=== PATIENT | male | born 1945 | race Caucasian/White ===

== ENCOUNTER 2023-02-15 13:00 | Outpatient (RCR) | payer MEDICARE, SELFPAY | END 2023-04-25 07:51 | disposition home or self-care (01) | PROVIDERS: Visit Provider Family Medicine | DX: I63.9 Cerebral infarction, unspecified (principal); Z51.89 Encounter for other specified aftercare | CPT/HCPCS: 97110; 97112; 97116; 97140; 97164; 97165; 97530; 97535; X5282 ==

== ENCOUNTER 2023-02-27 06:58 | Day surgery (SDC) | payer MEDICARE, SELFPAY ==
[2023-02-27] VITALS (48 sets, daily range): BP systolic 78–145; BP diastolic 43–90; PULSE 64–96; RESP 16–18; TEMP 35.9–37; O2SAT 91–98; BMI 38.5
[2023-02-27] MEDS: LACTATED RINGERS 1000 ML 1,000 ML 100 ML IV ×2 (07:00→11:19)
[2023-02-27] MEDS: ACETAMINOPHEN 500 MG TABLET 1000 MG PO ×3 (07:15→20:38)
[2023-02-27] MEDS: OXYCODONE (CR) 10 MG TAB.ER.12H PO (07:15)
[2023-02-27] MEDS: fentaNYL 100 MCG/2 ML inj IVP (08:50)
[2023-02-27] MEDS: MIDAZOLAM HCL 1 MG/ML inj IVP (08:50)
--- NOTE | 2023-02-27 08:58 | SUR.PREOP ---
TIME?OUT:?0848 PT/RN/MDA?VERIFICATION?OF?SURGICAL?SITE,?PROCEDURE,?AND?CONSENT OBTAINED?PRIOR?TO?INVASIVE?PROCEDURE.
--- NOTE | 2023-02-27 09:00 | W.ANESCHARGE ---
Anesthesia Charges Start Date/Time Anesthesia Start Date: 02/27/23 Anesthesia Start Time: 09:18 Stop Date/Time Anesthesia Stop Date: 02/27/23 Anesthesia Stop Time: 12:00 Summary Extremes of Age - Over 70 or under 1: MDA
--- NOTE | 2023-02-27 09:01 | W.PM.NB ---
Nerve Block Nerve Block Time Seen by Provider: 08:55 Date Seen: 02/27/23 Type of block requested by surgeon for post-operative analgesia: supraclavicular Side: left Time out performed: Yes Verification of patient name: Yes Verification of date of : Yes Site marking: site marked Name of person performing procedure: Cristóbal Continuous monitoring Was continuous monitoring of O2 sat, B/P, hospital monitor, recorded every 15 minutes?: Yes Procedure Checklist: sterile prep, needles and gloves Ultrasound guided. Images saved: Yes Medications given in 5ml increments after negative aspiration: Ropivicaine %: 0.5 mL: 20 Needle gauge: 22 Decadron (mg): 10 Precedex (mcg): 25 Patient tolerated procedure well: Yes Block Charges Block Charge (with Pro Fee): Brachial Plexus Use of Ultrasound Machine for Block: Yes- US Guidance/pain block
[2023-02-27] MEDS: CEFAZOLIN 2 GM INJ IVP (09:21)
[2023-02-27] MEDS: TRANEXAMIC ACID 100 MG/ML INJ 1000 MG IV (09:22)
--- NOTE | 2023-02-27 09:54 | SUR.OPER ---
PATIENT QUESTIONS ANSWERED SATISFACTORILY PREOPERATIVELY. PATIENT BROUGHT TO OR #3 PER CART FOLLOWING THE BLOCK. Patient positioned supine on OR #3 bed for the intubation.? Perioperative team wrapped the right arm in a neutral position on the pt. abdomen with the drawsheet. Left arm elevated on an IV pole in a padded strap. Final approval of positioning by surgeon.
--- NOTE | 2023-02-27 11:19 | CRLHL7_ITS ---
For Patients: As a result of the Cures Act, medical imaging exams and procedure reports are released immediately into your electronic medical record. You may view this report before your referring provider. If you have questions, please contact your health care provider. Indication: Left shoulder arthroplasty Technique: Left shoulder 2 view Findings: Hardware from a left shoulder arthroplasty is in satisfactory position. Bone alignment is normal. No sign of acute fracture. There are postoperative changes in the soft tissues. Dictated by Jose Alberto Robison MD @ 02/28/2023 3:49:57 PM (Electronically Signed)
--- NOTE | 2023-02-27 11:26 | P.ORPRC_ITS ---
Procedure Note Date of procedure: 02/27/23 Procedure: PREOPERATIVE DIAGNOSIS: Left shoulder rotator cuff tear arthropathy POSTOPERATIVE DIAGNOSIS: Left shoulder rotator cuff tear arthropathy NAME OF OPERATION: Left upper extremity reverse shoulder arthroplasty SURGEON: Jamel Shah MD [facility] AUTHOR: JESUS ALBERTO Rogers ANESTHESIA: General endotracheal ESTIMATED BLOOD LOSS: 500 mL COMPLICATIONS: None SPECIMENS: None DRAINS: None PREOPERATIVE ANTIBIOTICS: Ancef 2 grams IMPLANTS: 1. Tornier 29 mm x 35 mm baseplate 2. 36mm standard glenosphere 3. 7B humeral stem 4. High eccentric +0 humeral tray 5. 36mm +6 polyethylene INDICATIONS: The patient is a 77-year-old with a longstanding history of severe, unrelenting left shoulder pain secondary to rotator cuff tear arthropathy. Despite appropriate nonoperative management, including activity modification, anti-inflammatories, [id number] pain medication, physical therapy, and injections they continue to have pain and disability. Operative intervention was offered. The risks, benefits and expected outcomes were discussed in detail. These included but were not limited to: Infection, bleeding, injury to blood vessel or nerve, venous thromboembolism. All questions were answered to their satisfac tion. Use of an transition assistant was necessary throughout the case for patient positioning and safety, soft tissue retraction, and closure. PROCEDURE: General anesthesia was administered. The patient was placed in the lazy beach chair position on the operating room table. The left upper extremity was prepped and draped in the usual sterile fashion. A standard deltopectoral incision was made. Subcutaneous dissection was taken with electrocautery to the deltopectoral interval. There was a large superficial varicosity at the distal apex of the wound. This was tied off with an 0 Vicryl suture and divided. The cephalic vein was not encountered. We bluntly entered the deltopectoral interval. We freed up the deltoid. The upper 1/3 of the insertion of the pectoralis was divided with cautery. The static retractor was placed. The clavipectoral fascia and CA ligament were divided. The circumflex vessels were controlled with electrocautery. The biceps was not encountered. There were a few fibers of subscap remaining attached to the lesser tuberosity. Otherwise, the rest of the rotator cuff; including the teres minor, were completely torn and retracted off of the humeral head. A fiberWire suture was placed in the subscapularis. The subscap was subperiosteally elevated off of the lesser tuberosity. The humeral head was delivered into the wound. The intramedullary humeral cutting guide was placed. We made the cut at the anatomic neck, in 30? of retroversion. Humeral sounds were used to assess the diameter of the canal. The broach was placed and had good rotational stability. The calcar reamer was used and the protective base plate cover was placed. Attention was then turned to the glenoid. Hohmann retractors were placed posteriorly. The labrum was sharply debrided. The origin of the inferior glenohumeral ligaments were subperiosteally released off of the glenoid. The drill guide was placed. The guide pin was placed in 0? of cephalic tilt. The reamer was used to bleeding bone. The central drill was used x2. The tap was used. The standard base plate was placed. This had excellent purchase. A superior and inferior locking screw were placed. The glenosphere was placed, the set screw was tightened. Attention then returned to the humerus. We placed a high eccentric standard base plate and standard poly. We reduced the shoulder and took it through a range of motion. It was found to be stable with appropriate soft tissue tension. Trial humeral components were removed. The biceps was tenodesed in the bicipital groove with drill holes and our previously placed FiberWire suture. We placed #2 FiberWire sutures in the lesser tuberosity for subsequent subscap repair. We assembled the humeral component on the back table. We placed it in the center of our subscapularis repair sutures and tapped it down to our humeral cut. This had excellent purchase. The shoulder was reduced and again was found to be stable with appropriate soft tissue tension. We did a 3 min dilute Betadine solution soak. We irrigated the wound with 3 L of normal saline via pulse lavage. We repaired the subscapularis to the lesser tuberosity with our previously placed FiberWire sutures. The deltopectoral interval was loosely reapproximated with an 0 Vicryl in an interrupted [id number] fashion. Subcutaneous tissues were closed with the 2-0 Vicryl and a running 3-0 Monocryl suture. The skin was sealed with glue. A dry dressing and sling were applied. Sponge and needle counts were correct x2. The patient tolerated the procedure well, there were no apparent complications. They were awakened and extubated in the operating room, taken to the postanesthesia care unit in satisfactory condition. PLAN: The patient will be mobilized with physical therapy. The sling will be used for 6 weeks postoperatively. Active range of motion in forward flexion and abduction as tolerates. No external rotation greater than 0? for 6 weeks postoperatively. They will be discharged to home once medically appropriate.
--- NOTE | 2023-02-27 12:02 | W.ANESCHARGE ---
Anesthesia Charges Start Date/Time Anesthesia Start Date: 02/27/23 Anesthesia Start Time: 09:18 Stop Date/Time Anesthesia Stop Date: 02/27/23 Anesthesia Stop Time: 12:00
--- NOTE | 2023-02-27 13:07 | PC.NURSE ---
Md notified that patients blood pressures are low. Denies low BP symptoms. Verbal order for LR at 500cc/hr X1 hour.
[2023-02-27] MEDS: LACTATED RINGERS 500 ML 500 ML IV ×2 (13:08→14:15)
[2023-02-27] MEDS: LACTATED RINGERS 1000 ML 1,000 ML 75 ML IV ×2 (13:58→23:39)
--- NOTE | 2023-02-27 14:04 | PC.SOCIAL ---
Discharge planning: Met with pt to discuss discharge planning. Pt states he will return home with his son after discharge and continue outpatient physical therapy. Pt feels good about this discharge plan. No other director social follow-up needed at this time.
--- NOTE | 2023-02-27 14:15 | PC.NURSE ---
MD notified that BP continues to be low. Patient does not complain of dizziness or light headedness. LR bolus ordered and started.
--- NOTE | 2023-02-27 14:38 | PM.IMCN1 ---
Date of Consult Patient: [facility] Patient Consult date: 02/27/23 Requesting Physician: Orthopedics Primary Care Provider: Lauren Hernandez, Consult Narrative Reason for consult: post op hypotension Narrative: Patricio Lopez is a 77 year old male with a complicated medical history who underwent an elective left reverse shoulder arthroplasty today. Postoperatively, he has been hypotensive with sitting up even a little. He got 1.5L IVF in the OR and two 500mL boluses since being on the floor. He feels fine. He denies pain, states the block is still working, denies dizziness or lightheadedness, chest pain, shortness of breath, or nausea. His nurse notes that he seems a little confused as he says some funny things sometimes. I also noted he seemed mildly confused, as he asked if I was ringing a perez when the IV pump beeped. He has not had any UO yet since surgery. Review of Systems Status of ROS: Reports: 10 or more systems reviewed and unremarkable except as noted in History and below [facility] Medical History (Updated 02/27/23 @ 17:19 by Jeanine More MD) Mild cognitive impairment ?G31.84 - Mild cognitive impairment of uncertain or unknown etiology (ICD-10) CKD stage 3 due to type 2 diabetes mellitus ?E11.22 - Type 2 diabetes mellitus with diabetic chronic kidney disease (ICD-10) ?N18.30 - Chronic kidney disease, stage 3 unspecified (ICD-10) Type 2 diabetes mellitus ?E11.9 - Type 2 diabetes mellitus without complications (ICD-10) Morbid obesity ?E66.01 - Morbid (severe) obesity due to excess calories (ICD-10) Colon polyps ?K63.5 - Polyp of colon (ICD-10) Ischemic cardiomyopathy ?I25.5 - Ischemic cardiomyopathy (ICD-10) Implantable cardioverter-defibrillator (ICD) in situ ?Z95.810 - Presence of automatic (implantable) cardiac defibrillator (ICD-10) NSVT (nonsustained ventricular tachycardia) ?I47.29 - Other ventricular tachycardia (ICD-10) Chronic congestive heart failure ?I50.9 - Heart failure, unspecified (ICD-10) LEWIS (obstructive sleep apnea) ?G47.33 - Obstructive sleep apnea (adult) (pediatric) (ICD-10) Hyperopia of both eyes with astigmatism and presbyopia ?H52.03 - Hypermetropia, bilateral (ICD-10) ?H52.203 - Unspecified astigmatism, bilateral (ICD-10) ?H52.4 - Presbyopia (ICD-10) Restrictive lung disease ?J98.4 - Other disorders of lung (ICD-10) HLD (hyperlipidemia) ?E78.5 - Hyperlipidemia, unspecified (ICD-10) Myocardial infarction ?I21.9 - Acute myocardial infarction, unspecified (ICD-10) TIA (transient ischemic attack) ?G45.9 - Transient cerebral ischemic attack, unspecified (ICD-10) Coronary artery disease ?I25.10 - Atherosclerotic heart disease of ruby coronary artery without angina pectoris (ICD-10) Hypertension ?I10 - Essential (primary) hypertension (ICD-10) Stroke ?I63.9 - Cerebral infarction, unspecified (ICD-10) Closed fracture of proximal end of right humerus ?S42.201A - Unspecified fracture of upper end of right humerus, initial encounter for closed fracture (ICD-10) Surgical History (Updated 02/27/23 @ 17:19 by Jeanine More MD) S/p reverse total shoulder arthroplasty (02/27/23) ?Z96.619 - Presence of unspecified artificial shoulder joint (ICD-10) H/O right wrist surgery (~1963) ?Z98.890 - Other specified postprocedural states (ICD-10) History of placement of internal cardiac defibrillator (~2004) ?Z95.810 - Presence of automatic (implantable) cardiac defibrillator (ICD-10) S/P CABG x 3 (~02/13/19) ?Z95.1 - Presence of aortocoronary bypass graft (ICD-10) H/O angioplasty ?Z98.62 - Peripheral vascular angioplasty status (ICD-10) Hx of colonoscopy ?Z98.890 - Other specified postprocedural states (ICD-10) History of tonsillectomy (~1951) ?Z90.89 - Acquired absence of other organs (ICD-10) H/O heart surgery ?Z98.890 - Other specified postprocedural states (ICD-10) History of carpal tunnel surgery of left wrist (07/08/08) ?Z98.890 - Other specified postprocedural states (ICD-10) Status post right hip replacement (12/23/19) ?Z96.641 - Presence of right artificial hip joint (ICD-10) Family History (Updated 02/27/23 @ 15:28 by Jeanine More MD) Father Dementia Maternal Grandmother Diabetes Brother Cardiomyopathy Social History (Updated 02/27/23 @ 15:29 by Jeanine More MD) Narrative: Lives in his own house. . Son, Casey, and Casey's 14 year old daughter live with him. He denies tobacco use. 1-2 alcoholic drinks per week. Meds Home Medications and Allergies Home Medications Medication Instructions Recorded Confirmed Type cyanocobalamin (vitamin B-12) 1,000 mcg PO DAILY 12/08/22 12/08/22 History 1,000 mcg tablet ezetimibe 10 mg tablet 10 mg PO DAILY 12/08/22 02/27/23 History ferrous sulfate 325 mg (65 mg 325 mg PO 12/08/22 12/08/22 History iron) tablet furosemide 20 mg tablet 20 mg PO QAM 12/08/22 02/27/23 History glipizide 5 mg tablet 2.5 mg PO BIDWM 12/08/22 02/27/23 History lisinopril 10 mg tablet 5 mg PO DAILY 12/08/22 02/27/23 History metoprolol succinate 100 mg 100 mg PO DAILY 12/08/22 02/27/23 History tablet,extended release 24 hr rosuvastatin 40 mg tablet 20 mg PO .UD 12/08/22 02/27/23 History rivaroxaban 20 mg tablet (Xarelto) 20 mg PO DAILY 12/13/22 02/27/23 History Allergies Allergy/AdvReac Type Severity Reaction Status Date / Time aspirin Allergy Verified 02/27/23 07:50 atorvastatin Allergy Verified 02/27/23 07:50 Exam Narrative: Exam Narrative: General: No acute distress. Awake alert oriented x3 and to situation. HEENT: Normocephalic atraumatic, pupils equally round and reactive to light and accommodation. Oropharynx clear. Mucous membranes are slightly dry. No cervical lymphadenopathy, thyromegaly or carotid bruits. No JVD. Cardiovascular: Regular rate and rhythm. No murmurs, gallops, or rubs. Chest: No increased work of breathing. Clear to auscultation bilaterally. No crackles or wheezes. Defibrillator in a well-healed pocket in the left upper anterior chest left shoulder bandages are clean, dry, and intact. Abdomen: Bowel sounds present. Soft, nondistended, nontender. No hepatosplenomegaly or masses. Extremities: No edema, no cyanosis or clubbing. Skin: No jaundice, no pallor, no rashes. Const: Vital Signs, click to edit/add: Vital Signs - 24 hr 02/27/23 07:30 02/27/23 08:50 02/27/23 08:55 Temperature 98.0 F Pulse Rate 71 73 64 Respiratory Rate 16 16 16 Blood Pressure 133/72 145/90 H 120/69 Pulse Oximetry Oxygen Delivery Me thod Nasal Cannula Nasal Cannula Oxygen Flow Rate 2 2 02/27/23 09:00 02/27/23 09:07 02/27/23 11:55 Temperature 97.4 F L Pulse Rate 66 66 80 Respiratory Rate 16 16 16 Blood Pressure 114/67 118/64 130/89 Pulse Oximetry 96 Oxygen Delivery Me thod Nasal Cannula Nasal Cannula Room Air Oxygen Flow Rate 2 2 02/27/23 12:00 02/27/23 12:05 02/27/23 12:10 Temperature 97.2 F L Pulse Rate 74 71 72 Respiratory Rate 18 18 18 Blood Pressure 114/64 111/56 L 114/61 Pulse Oximetry 95 94 94 Oxygen Delivery Me thod Room Air Room Air Room Air Oxygen Flow Rate 02/27/23 12:15 02/27/23 12:20 02/27/23 12:25 Temperature 97.2 F L Pulse Rate 74 70 67 Respiratory Rate 18 16 18 Blood Pressure 115/63 114/61 110/69 Pulse Oximetry 94 93 93 Oxygen Delivery Me thod Room Air Room Air Room Air Oxygen Flow Rate Assessment and Plan Assessment and plan (1) S/p reverse total shoulder arthroplasty: Problem comment: - 02/27/23 Dr. Shah - Pain well controlled - Routine post op cares - PT/OT. Anticipate home tomorrow with son. Status: Acute (2) Postoperative hypotension: Problem comment: - orthostatic - Improving now after 2.5 L IVF total (during and postop) - Monitor UO and orthostatic VS - hold home antihypertensives Status: Acute (3) Hypertension: Problem comment: as above Status: Chronic (4) Mild cognitive impairment: Problem comment: - Monitor for delirium. Reorient frequently. Status: Chronic (5) NSVT (nonsustained ventricular tachycardia): Problem comment: has defibrillator in situ Status: Chronic (6) Chronic congestive heart failure: Problem comment: - Give IVF carefully and monitor for hypoxia/pulmonary edema Status: Chronic (7) Restrictive lung disease: Status: Chronic (8) LEWIS (obstructive sleep apnea): Problem comment: - 09/30/2017 AHI/RDI:14 - Patient has home CPAP with him. Status: Chronic (9) Type 2 diabetes mellitus: Problem comment: - Continue home diabetic meds. - Use ISS ACHS while in the hospital Status: Acute (10) CKD stage 3 due to type 2 diabetes mellitus: Status: Chronic
--- NOTE | 2023-02-27 15:04 | PC.NURSE ---
End of shift note: patient returned from OR at 1235. BP has been low since coming back. Worse when head of bed is elevated. Better when flat. MD aware and X2 bolus's given. LR at 75/hr. Has not voided yet or felt the urge to void. Blood sugar on arrival to unit was 181. Has drank apple juice, had crackers and water. Denies nausea/vomiting, denies dizziness. Is able to feel and move fingers on left side. Fingers are warm and capillary refill is sufficient. Incision is covered with dressing and no drainage noted. Ice pack intact. Due to the low BP, patient has not been up yet. Patient asked where he was and appeared to be confused. Son stated that he is very sensitive to narcotics and anesthesia. On RA. Bowel sounds hypoactive-pt unaware when his last BM was. Lives with son and son plans to take him home tomorrow.
[2023-02-27 16:01] LABS: Hemoglobin* 12.7 gm/dL (13.5-17.5)
[2023-02-27] MEDS: CEFAZOLIN 2 GM in 0.9 % SODIUM CHLORIDE Mini-bag 100 ML IVPB ×2 (16:30→23:38)
[2023-02-27] MEDS: glipiZIDE 5 MG TABLET 2.5 MG PO (18:13)
[2023-02-27] MEDS: INSULIN ASPART 100 UNIT/ML SUBCUT ×2 (18:13→20:38)
--- NOTE | 2023-02-27 19:27 | PC.NURSE ---
End of shift. 3-7 pt has been pleasant. he is alert x4 but he has some forgetfulness. pt said he has had some cognitive problems. LR at 75/hr. he is drinking and he did void in the toilet. bps done and are improving. he was able to eat supper. he Is able to feel and move fingers on left side. Fingers are warm with good cms. dressing is C/D/I. active ice is on/. he is a fall risk and alarms are on. he is up with 1-2 assist and gb and IV pole. he has his mohamud socks on. IV is patent. arm in in a sling.
[2023-02-27] MEDS: SENNOSIDES 1 TAB TABLET 2 TAB PO (20:36)
[2023-02-27] MEDS: ROSUVASTATIN CALCIUM 10 MG TABLET 20 MG PO (20:37)
[2023-02-28] MEDS: ACETAMINOPHEN 500 MG TABLET 1000 MG PO ×2 (02:29→08:17)
[2023-02-28 02:43] VITALS: BP 138/72; PULSE 98; RESP 18; TEMP 37; O2SAT 96
--- NOTE | 2023-02-28 05:11 | PC.NURSE ---
Pt alert and oriented to self and at times place. When asked where he is he stated I'm in [facility] in the assisted part and when asked what year he stated 2006. Pt reports 2/10 pain in left shoulder, pain managed with scheduled Tylenol. Pt's left shoulder dressing is CDI. Pt is up SBA to bathroom. Bed alarm on. Pt slept throughout most of night occasionally setting of bed alarm to go to the bathroom.
[2023-02-28 06:35] LABS: Hematocrit 35.6 % (37.0-53.0); Hemoglobin* 11.8 gm/dL (13.5-17.5); Mean Corpuscular HGB Conc 33 gm/dL (32-36); Mean Corpuscular Hemoglobin 32 pg (26-34); Mean Corpuscular Volume 95 fL (80-100); Platelet Count* 175 K/uL (140-440); Red Blood Count 3.74 m/uL (4.30-5.90); White Blood Count* 14.01 K/uL (4.50-11.00)
[2023-02-28 06:57] LABS: Potassium* 4.8 mmol/L (3.6-5.1); Sodium* 137 mmol/L (135-149)
[2023-02-28 07:00] LABS: Creatinine* 0.6 mg/dL (0.5-1.5); Est. Creatinine Clearance* 59.85; Estimated Glomerular Filt Rate 99 ml/min
[2023-02-28 07:01] LABS: Blood Urea Nitrogen* 18 mg/dL (7-30)
[2023-02-28 07:06] LABS: Slide Review Reflex No
[2023-02-28 08:05] VITALS: BP 127/68; PULSE 76; PULSE 92; RESP 16; TEMP 36.5; O2SAT 95
[2023-02-28] MEDS: glipiZIDE 5 MG TABLET 2.5 MG PO (08:17)
[2023-02-28] MEDS: INSULIN ASPART 100 UNIT/ML SUBCUT (08:18)
--- NOTE | 2023-02-28 08:46 | P.ORPN_ITS ---
Subjective Subjective Time Seen by Provider: 07:13 Date Seen: 02/28/23 Principal diagnosis: Status post left reverse total shoulder arthroplasty Interval history: Patricio is comfortable this morning. He is planning to discharge with his son to day. He had postop hypertension and confusion. He states his pain is 2/10. Ortho Exam Narrative Exam Narrative: Alert and conversive. Patient is in no acute distress. Converses without labored breathing. Hearing is grossly intact. Ambulates with a normal gait. Examination of the left shoulder shows mild edema. Dressing is intact. No erythema or warmth or sign of infection. CMS intact left upper extremity. He is able to range the elbow, wrist, fingers. Block has begun to wear off. He however appears comfortable. Ice pack in place. No sign of infection or DVT. Const Vital Signs, click to edit/add: Vital Signs - 24 hr 02/27/23 08:50 02/27/23 08:55 02/27/23 09:00 Temperature Pulse Rate 73 64 66 Pulse Rate [Left Pulse Oximeter] Pulse Rate [Left Radial] Pulse Rate [orthostatic lying Right Radial] Pulse Rate [orthostatic sitting Right Radial] Pulse Rate [orthostatic standing Right Radial] Respiratory Rate 16 16 16 Blood Pressure 145/90 H 120/69 114/67 Blood Pressure [Right Arm] Blood Pressure [orthostatic lying Right Arm] Blood Pressure [orthostatic sitting Right Arm] Blood Pressure [orthostatic standing Right Arm] Pulse Oximetry Oxygen Delivery Method Nasal Cannula Nasal Cannula Nasal Cannula Oxygen Flow Rate 2 2 2 02/27/23 09:07 02/27/23 11:55 02/27/23 12:00 Temperature 97.4 F L Pulse Rate 66 80 74 Pulse Rate [Left Pulse Oximeter] Pulse Rate [Left Radial] Pulse Rate [orthostatic lying Right Radial] Pulse Rate [orthostatic sitting Right Radial] Pulse Rate [orthostatic standing Right Radial] Respiratory Rate 16 16 18 Blood Pressure 118/64 130/89 114/64 Blood Pressure [Right Arm] Blood Pressure [orthostatic lying Right Arm] Blood Pressure [orthostatic sitting Right Arm] Blood Pressure [orthostatic standing Right Arm] Pulse Oximetry 96 95 Oxygen Delivery Method Nasal Cannula Room Air Room Air Oxygen Flow Rate 2 02/27/23 12:05 02/27/23 12:10 02/27/23 12:15 Temperature 97.2 F L Pulse Rate 71 72 74 Pulse Rate [Left Pulse Oximeter] Pulse Rate [Left Radial] Pulse Rate [orthostatic lying Right Radial] Pulse Rate [orthostatic sitting Right Radial] Pulse Rate [orthostatic standing Right Radial] Respiratory Rate 18 18 18 Blood Pressure 111/56 L 114/61 115/63 Blood Pressure [Right Arm] Blood Pressure [orthostatic lying Right Arm] Blood Pressure [orthostatic sitting Right Arm] Blood Pressure [orthostatic standing Right Arm] Pulse Oximetry 94 94 94 Oxygen Delivery Method Room Air Room Air Room Air Oxygen Flow Rate 02/27/23 12:20 02/27/23 12:25 02/27/23 12:33 Temperature 97.2 F L Pulse Rate 70 67 72 Pulse Rate [Left Pulse Oximeter] Pulse Rate [Left Radial] Pulse Rate [orthostatic lying Right Radial] Pulse Rate [orthostatic sitting Right Radial] Pulse Rate [orthostatic standing Right Radial] Respiratory Rate 16 18 Blood Pressure 114/61 110/69 Blood Pressure [Right Arm] Blood Pressure [orthostatic lying Right Arm] Blood Pressure [orthostatic sitting Right Arm] Blood Pressure [orthostatic standing Right Arm] Pulse Oximetry 93 93 95 Oxygen Delivery Method Room Air Room Air Oxygen Flow Rate 02/27/23 12:35 02/27/23 12:39 02/27/23 12:41 Temperature 96.6 F L Pulse Rate 65 70 69 Pulse Rate [Left Pulse Oximeter] Pulse Rate [Left Radial] Pulse Rate [orthostatic lying Right Radial] Pulse Rate [orthostatic sitting Right Radial] Pulse Rate [orthostatic standing Right Radial] Respiratory Rate 16 16 16 Blood Pressure 87/76 L 90/43 L 90/52 L Blood Pressure [Right Arm] Blood Pressure [orthostatic lying Right Arm] Blood Pressure [orthostatic sitting Right Arm] Blood Pressure [orthostatic standing Right Arm] Pulse Oximetry 97 98 98 Oxygen Delivery Method Oxygen Flow Rate 02/27/23 12:47 02/27/23 12:49 02/27/23 13:00 Temperature Pulse Rate 69 71 Pulse Rate [Left Pulse Oximeter] Pulse Rate [Left Radial] Pulse Rate [orthostatic lying Right Radial] Pulse Rate [orthostatic sitting Right Radial] Pulse Rate [orthostatic standing Right Radial] Respiratory Rate Blood Pressure 100/49 L Blood Pressure [Right Arm] Blood Pressure [orthostatic lying Right Arm] Blood Pressure [orthostatic sitting Right Arm] Blood Pressure [orthostatic standing Right Arm] Pulse Oximetry 94 95 Oxygen Delivery Method Oxygen Flow Rate 02/27/23 13:00 02/27/23 13:02 02/27/23 13:13 Temperature 96.8 F L 97.1 F L Pulse Rate 67 73 Pulse Rate [Left Pulse Oximeter] Pulse Rate [Left Radial] Pulse Rate [orthostatic lying Right Radial] Pulse Rate [orthostatic sitting Right Radial] Pulse Rate [orthostatic standing Right Radial] Respiratory Rate 16 16 Blood Pressure 78/54 L 85/61 L Blood Pressure [Right Arm] Blood Pressure [orthostatic lying Right Arm] Blood Pressure [orthostatic sitting Right Arm] Blood Pressure [orthostatic standing Right Arm] Pulse Oximetry 94 97 Oxygen Delivery Method Room Air Oxygen Flow Rate 02/27/23 13:15 02/27/23 13:17 02/27/23 13:30 Temperature Pulse Rate 74 75 68 Pulse Rate [Left Pulse Oximeter] Pulse Rate [Left Radial] Pulse Rate [orthostatic lying Right Radial] Pulse Rate [orthostatic sitting Right Radial] Pulse Rate [orthostatic standing Right Radial] Respiratory Rate Blood Pressure 88/66 L Blood Pressure [Right Arm] Blood Pressure [orthostatic lying Right Arm] Blood Pressure [orthostatic sitting Right Arm] Blood Pressure [orthostatic standing Right Arm] Pulse Oximetry 96 95 96 Oxygen Delivery Method Oxygen Flow Rate 02/27/23 13:33 02/27/23 13:45 02/27/23 13:47 Temperature Pulse Rate 72 77 71 Pulse Rate [Left Pulse Oximeter] Pulse Rate [Left Radial] Pulse Rate [orthostatic lying Right Radial] Pulse Rate [orthostatic sitting Right Radial] Pulse Rate [orthostatic standing Right Radial] Respiratory Rate Blood Pressure 94/49 L 98/53 L Blood Pressure [Right Arm] Blood Pressure [orthostatic lying Right Arm] Blood Pressure [orthostatic sitting Right Arm] Blood Pressure [orthostatic standing Right Arm] Pulse Oximetry 96 95 96 Oxygen Delivery Method Oxygen Flow Rate 02/27/23 13:59 02/27/23 14:00 02/27/23 14:01 Temperature Pulse Rate 76 73 74 Pulse Rate [Left Pulse Oximeter] Pulse Rate [Left Radial] Pulse Rate [orthostatic lying Right Radial] Pulse Rate [orthostatic sitting Right Radial] Pulse Rate [orthostatic standing Right Radial] Respiratory Rate Blood Pressure 81/50 L 95/72 Blood Pressure [Right Arm] Blood Pressure [orthostatic lying Right Arm] Blood Pressure [orthostatic sitting Right Arm] Blood Pressure [orthostatic standing Right Arm] Pulse Oximetry 97 96 98 Oxygen Delivery Method Oxygen Flow Rate 02/27/23 14:15 02/27/23 14:30 02/27/23 14:32 Temperature 97.1 F L Pulse Rate 72 71 70 Pulse Rate [Left Pulse Oximeter] Pulse Rate [Left Radial] Pulse Rate [orthostatic lying Right Radial] Pulse Rate [orthostatic sitting Right Radial] Pulse Rate [orthostatic standing Right Radial] Respiratory Rate Blood Pressure 92/57 L Blood Pressure [Right Arm] Blood Pressure [orthostatic lying Right Arm] Blood Pressure [orthostatic sitting Right Arm] Blood Pressure [orthostatic standing Right Arm] Pulse Oximetry 95 96 95 Oxygen Delivery Method Oxygen Flow Rate 02/27/23 14:45 02/27/23 15:00 02/27/23 15:02 Temperature 97.1 F L Pulse Rate 70 77 78 Pulse Rate [Left Pulse Oximeter] Pulse Rate [Left Radial] Pulse Rate [orthostatic lying Right Radial] Pulse Rate [orthostatic sitting Right Radial] Pulse Rate [orthostatic standing Right Radial] Respiratory Rate 16 Blood Pressure 98/60 Blood Pressure [Right Arm] Blood Pressure [orthostatic lying Right Arm] Blood Pressure [orthostatic sitting Right Arm] Blood Pressure [orthostatic standing Right Arm] Pulse Oximetry 95 95 97 Oxygen Delivery Method Oxygen Flow Rate 02/27/23 15:15 02/27/23 15:35 02/27/23 15:37 Temperature 97.1 F L Pulse Rate 82 Pulse Rate [Left Pulse Oximeter] 74 74 Pulse Rate [Left Radial] Pulse Rate [orthostatic lying Right Radial] Pulse Rate [orthostatic sitting Right Radial] Pulse Rate [orthostatic standing Right Radial] Respiratory Rate 16 16 Blood Pressure Blood Pressure [Right Arm] 105/46 L Blood Pressure [orthostatic lying Right Arm] Blood Pressure [orthostatic sitting Right Arm] Blood Pressure [orthostatic standing Right Arm] Pulse Oximetry 91 96 Oxygen Delivery Method Room Air Oxygen Flow Rate 02/27/23 16:03 02/27/23 16:33 02/27/23 16:35 Temperature Pulse Rate Pulse Rate [Left Pulse Oximeter] 71 74 84 Pulse Rate [Left Radial] Pulse Rate [orthostatic lying Right Radial] Pulse Rate [orthostatic sitting Right Radial] Pulse Rate [orthostatic standing Right Radial] Respiratory Rate 16 16 16 Blood Pressure Blood Pressure [Right Arm] 108/58 L 104/59 L 144/69 H Blood Pressure [orthostatic lying Right Arm] Blood Pressure [orthostatic sitting Right Arm] Blood Pressure [orthostatic standing Right Arm] Pulse Oximetry 94 95 95 Oxygen Delivery Method Room Air Room Air Room Air CPAP Oxygen Flow Rate 02/27/23 17:03 02/27/23 17:33 02/27/23 18:01 Temperature Pulse Rate Pulse Rate [Left Pulse Oximeter] 94 74 Pulse Rate [Left Radial] Pulse Rate [orthostatic lying Right Radial] 77 Pulse Rate [orthostatic sitting Right Radial] 89 Pulse Rate [orthostatic standing Right Radial] 96 Respiratory Rate 16 16 Blood Pressure Blood Pressure [Right Arm] 112/61 110/77 Blood Pressure [orthostatic lying Right Arm] 110/70 Blood Pressure [orthostatic sitting Right Arm] 120/71 Blood Pressure [orthostatic standing Right Arm] 106/71 Pulse Oximetry 95 95 Oxygen Delivery Method Room Air CPAP Room Air CPAP Oxygen Flow Rate 02/27/23 18:30 02/27/23 19:00 02/27/23 23:30 Temperature 97.7 F 97.9 F Pulse Rate Pulse Rate [Left Pulse Oximeter] 88 79 79 Pulse Rate [Left Radial] Pulse Rate [orthostatic lying Right Radial] Pulse Rate [orthostatic sitting Right Radial] Pulse Rate [orthostatic standing Right Radial] Respiratory Rate 16 16 18 Blood Pressure Blood Pressure [Right Arm] 119/84 112/53 L Blood Pressure [orthostatic lying Right Arm] Blood Pressure [orthostatic sitting Right Arm] Blood Pressure [orthostatic standing Right Arm] Pulse Oximetry 95 97 Oxygen Delivery Method Room Air CPAP Room Air CPAP Oxygen Flow Rate 02/27/23 23:30 02/28/23 02:43 02/28/23 08:05 Temperature 98.6 F 98.6 F 97.7 F Pulse Rate Pulse Rate [Left Pulse Oximeter] 79 98 92 Pulse Rate [Left Radial] 76 Pulse Rate [orthostatic lying Right Radial] Pulse Rate [orthostatic sitting Right Radial] Pulse Rate [orthostatic standing Right Radial] Respiratory Rate 18 18 16 Blood Pressure Blood Pressure [Right Arm] 114/64 138/72 127/68 Blood Pressure [orthostatic lying Right Arm] Blood Pressure [orthostatic sitting Right Arm] Blood Pressure [orthostatic standing Right Arm] Pulse Oximetry 97 96 95 Oxygen Delivery Method Room Air CPAP Room Air CPAP Room Air Oxygen Flow Rate Assessment and Plan Assessment and plan (1) S/p reverse total shoulder arthroplasty: Problem details: Left, 02/27/2023 Status: Acute Assessment and Plan: Plan for discharge is with son when they meet discharge criteria. Blood pressure is currently normal Patient will wear the sling for 6 weeks post surgery. They can take it off for comfort and for exercises. Activity: no external rotation of the operative shoulder past 0? x 6 weeks. Forward flexion and abduction of the shoulder is allowed as tolerated. They will work on range of motion of the elbow, wrist, fingers once the block has wore off on the operative extremity. Patient will begin physical therapy for the operative shoulder next week. For discharge, oxycodone and Tylenol for pain. Do not drive while on narcotic pain medication. Drive only when safe to do so, when they have normal use/function of the upper extremity, this will likely take 6 weeks. Patient will minimize and discontinue the narcotic as soon as possible. Remove dressing in 1 week. Dressing is waterproof. May shower. Surgical glue covers the wound. Do not scrub the wound. Expect swelling and bruising about the shoulder and upper extremity. Use of ice/active ice without restriction. Notify Orthopedics his swelling is excessive. notify Orthopedics with any questions or concerns. [phone] Return to Orthopedic clinic next week for a wound check Return to clinic in [address] Shah.
[2023-02-28] MEDS: SENNOSIDES 1 TAB TABLET 2 TAB PO (09:18)
[2023-02-28] MEDS: METOPROLOL SUCCINATE (XL) 50 MG TAB PO (09:18)
[2023-02-28] MEDS: EZETIMIBE 10 MG TABLET PO (09:18)
[2023-02-28 09:28] VITALS: PULSE 92; RESP 18
--- NOTE | 2023-02-28 11:39 | PC.NURSE ---
shift note: pt up sba/GB with steady gait. pt has intact radial pulse bilat. cap refill intact bilat hands. pt has lt arm in sling. ice to lt shoulder covering incision to shoulder. drsg to lt shoulder c/d/i. reviewed dc instructions with pt's son. IV dc'd intact rt hand. Belongings and 2 ice packs sent with pt at dc.
--- NOTE | 2023-02-28 12:23 | P.IMPN_ITS ---
Progress Note: A&P Assessment and plan (1) S/p reverse total shoulder arthroplasty: Problem details: Left, 02/27/2023. No complications Status: Acute (2) Postoperative hypotension: Problem details: Postoperative hypotension resolved after fluid bolus. Resume home blood pressure medicines after discharge. Status: Acute (3) Mild cognitive impairment: Problem details: - Monitor for delirium. Reorient frequently. Patient appears to have at least mild if not moderate cognitive impairment during his hospital stay the some of this may be related to some hospital delirium. He is doing very well this morning so I think he can be discharged with his son. Ongoing outpatient evaluation management of that is list discussed with his son. Specifically noted that he may need increased supervision as time goes on. Son also notes that he has significant problems with confusion associated with opioids caution with opioids. Status: Chronic (4) LEWIS (obstructive sleep apnea): Problem details: - 09/30/2017 AHI/RDI:14 - Patient has home CPAP with him. Status: Chronic (5) Type 2 diabetes mellitus: Problem details: - Continue home diabetic meds. Blood sugars mildly to moderately elevated (190- 250) in the hospital Status: Acute (6) Chronic anticoagulation: Problem details: Patient is on Xarelto for anticoagulation. Chart indicates this is probably because he has had a stroke. Unclear if he has any history of AFib. No apparent diagnosis of DVT or PE. Xarelto was restarted here in the hospital. As an outpatient consider reviewing indications for full anticoagulation versus antiplatelet therapy for stroke prophylaxis in the absence of atrial fibrillation Status: Acute Plan Discharge to home today with son. Outpatient therapy. Increased supervision for cognitive impairment. Time Spent With Patient Total time spent: Total time spent today is 40 minutes, 30 minutes in coordination care discussing with patient, son and other providers ongoing evaluation management of shoulder surgery, cognitive impairment and home safety Subjective Date Seen: 02/28/23 Interval history: 77-year-old male admitted to the hospital for left shoulder arthroplasty. Procedure performed by Dr. Shah. Uncomplicated. Postoperatively he had hypotension requiring additional fluid boluses but overnight has been doing well without hypotension. Pain is been well controlled. He has no other concerns today. During the night nurses noted that he was confused and disoriented. Other staff note he has been forgetful. I spoke with his son who lives with him who indicates that there has been some age-related forgetfulness but no other concerns. Exam Narrative: Exam Narrative: He is alert appears in no distress. He is pleasant cooperative. Oriented to his circumstances. Respirations are clear to auscultation. Good air exchange on both lung rodas. Cardiovascular: S1, S2, regular rate and rhythm. Left upper extremity hot reportedly has fairly good sensation and good pulses good capillary refill and good motion in his hands and fingers. Abdomen is soft without tenderness extremities without edema. Const: Vital Signs, click to edit/add: Vital Signs - 24 hr 02/27/23 12:25 02/27/23 12:33 02/27/23 12:35 Temperature 97.2 F L 96.6 F L Pulse Rate 67 72 65 Pulse Rate [Left P ulse Oximeter] Pulse Rate [Left R adial] Pulse Rate [orthos tatic lying Right Radial] Pulse Rate [orthos tatic sitting Righ t Radial] Pulse Rate [orthos tatic standing Rig ht Radial] Respiratory Rate 18 16 Blood Pressure 110/69 87/76 L Blood Pressure [Ri ght Arm] Blood Pressure [or thostatic lying Ri ght Arm] Blood Pressure [or thostatic sitting Right Arm] Blood Pressure [or thostatic standing Right Arm] Pulse Oximetry 93 95 97 Oxygen Delivery Me thod Room Air 02/27/23 12:39 02/27/23 12:41 02/27/23 12:47 Temperature Pulse Rate 70 69 Pulse Rate [Left P ulse Oximeter] Pulse Rate [Left R adial] Pulse Rate [orthos tatic lying Right Radial] Pulse Rate [orthos tatic sitting Righ t Radial] Pulse Rate [orthos tatic standing Rig ht Radial] Respiratory Rate 16 16 Blood Pressure 90/43 L 90/52 L 100/49 L Blood Pressure [Ri ght Arm] Blood Pressure [or thostatic lying Ri ght Arm] Blood Pressure [or thostatic sitting Right Arm] Blood Pressure [or thostatic standing Right Arm] Pulse Oximetry 98 98 Oxygen Delivery Me thod 02/27/23 12:49 02/27/23 13:00 02/27/23 13:00 Temperature Pulse Rate 69 71 Pulse Rate [Left P ulse Oximeter] Pulse Rate [Left R adial] Pulse Rate [orthos tatic lying Right Radial] Pulse Rate [orthos tatic sitting Righ t Radial] Pulse Rate [orthos tatic standing Rig ht Radial] Respiratory Rate Blood Pressure Blood Pressure [Ri ght Arm] Blood Pressure [or thostatic lying Ri ght Arm] Blood Pressure [or thostatic sitting Right Arm] Blood Pressure [or thostatic standing Right Arm] Pulse Oximetry 94 95 Oxygen Delivery Me thod Room Air 02/27/23 13:02 02/27/23 13:13 02/27/23 13:15 Temperature 96.8 F L 97.1 F L Pulse Rate 67 73 74 Pulse Rate [Left P ulse Oximeter] Pulse Rate [Left R adial] Pulse Rate [orthos tatic lying Right Radial] Pulse Rate [orthos tatic sitting Righ t Radial] Pulse Rate [orthos tatic standing Rig ht Radial] Respiratory Rate 16 16 Blood Pressure 78/54 L 85/61 L Blood Pressure [Ri ght Arm] Blood Pressure [or thostatic lying Ri ght Arm] Blood Pressure [or thostatic sitting Right Arm] Blood Pressure [or thostatic standing Right Arm] Pulse Oximetry 94 97 96 Oxygen Delivery Me thod 02/27/23 13:17 02/27/23 13:30 02/27/23 13:33 Temperature Pulse Rate 75 68 72 Pulse Rate [Left P ulse Oximeter] Pulse Rate [Left R adial] Pulse Rate [orthos tatic lying Right Radial] Pulse Rate [orthos tatic sitting Righ t Radial] Pulse Rate [orthos tatic standing Rig ht Radial] Respiratory Rate Blood Pressure 88/66 L 94/49 L Blood Pressure [Ri ght Arm] Blood Pressure [or thostatic lying Ri ght Arm] Blood Pressure [or thostatic sitting Right Arm] Blood Pressure [or thostatic standing Right Arm] Pulse Oximetry 95 96 96 Oxygen Delivery Me thod 02/27/23 13:45 02/27/23 13:47 02/27/23 13:59 Temperature Pulse Rate 77 71 76 Pulse Rate [Left P ulse Oximeter] Pulse Rate [Left R adial] Pulse Rate [orthos tatic lying Right Radial] Pulse Rate [orthos tatic sitting Righ t Radial] Pulse Rate [orthos tatic standing Rig ht Radial] Respiratory Rate Blood Pressure 98/53 L 81/50 L Blood Pressure [Ri ght Arm] Blood Pressure [or thostatic lying Ri ght Arm] Blood Pressure [or thostatic sitting Right Arm] Blood Pressure [or thostatic standing Right Arm] Pulse Oximetry 95 96 97 Oxygen Delivery Me thod 02/27/23 14:00 02/27/23 14:01 02/27/23 14:15 Temperature 97.1 F L Pulse Rate 73 74 72 Pulse Rate [Left P ulse Oximeter] Pulse Rate [Left R adial] Pulse Rate [orthos tatic lying Right Radial] Pulse Rate [orthos tatic sitting Righ t Radial] Pulse Rate [orthos tatic standing Rig ht Radial] Respiratory Rate Blood Pressure 95/72 Blood Pressure [Ri ght Arm] Blood Pressure [or thostatic lying Ri ght Arm] Blood Pressure [or thostatic sitting Right Arm] Blood Pressure [or thostatic standing Right Arm] Pulse Oximetry 96 98 95 Oxygen Delivery Me thod 02/27/23 14:30 02/27/23 14:32 02/27/23 14:45 Temperature Pulse Rate 71 70 70 Pulse Rate [Left P ulse Oximeter] Pulse Rate [Left R adial] Pulse Rate [orthos tatic lying Right Radial] Pulse Rate [orthos tatic sitting Righ t Radial] Pulse Rate [orthos tatic standing Rig ht Radial] Respiratory Rate Blood Pressure 92/57 L Blood Pressure [Ri ght Arm] Blood Pressure [or thostatic lying Ri ght Arm] Blood Pressure [or thostatic sitting Right Arm] Blood Pressure [or thostatic standing Right Arm] Pulse Oximetry 96 95 95 Oxygen Delivery Mt thod 02/27/23 15:00 02/27/23 15:02 02/27/23 15:15 Temperature 97.1 F L Pulse Rate 77 78 82 Pulse Rate [Left P ulse Oximeter] Pulse Rate [Left R adial] Pulse Rate [orthos tatic lying Right Radial] Pulse Rate [orthos tatic sitting Righ t Radial] Pulse Rate [orthos tatic standing Rig ht Radial] Respiratory Rate 16 Blood Pressure 98/60 Blood Pressure [Ri ght Arm] Blood Pressure [or thostatic lying Ri ght Arm] Blood Pressure [or thostatic sitting Right Arm] Blood Pressure [or thostatic standing Right Arm] Pulse Oximetry 95 97 91 Oxygen Delivery Mt thod 02/27/23 15:35 02/27/23 15:37 02/27/23 16:03 Temperature 97.1 F L Pulse Rate Pulse Rate [Left P ulse Oximeter] 74 74 71 Pulse Rate [Left R adial] Pulse Rate [orthos tatic lying Right Radial] Pulse Rate [orthos tatic sitting Righ t Radial] Pulse Rate [orthos tatic standing Rig ht Radial] Respiratory Rate 16 16 16 Blood Pressure Blood Pressure [Ri ght Arm] 105/46 L 108/58 L Blood Pressure [or thostatic lying Ri ght Arm] Blood Pressure [or thostatic sitting Right Arm] Blood Pressure [or thostatic standing Right Arm] Pulse Oximetry 96 94 Oxygen Delivery Me thod Room Air Room Air 02/27/23 16:33 02/27/23 16:35 02/27/23 17:03 Temperature Pulse Rate Pulse Rate [Left P ulse Oximeter] 74 84 94 Pulse Rate [Left R adial] Pulse Rate [orthos tatic lying Right Radial] Pulse Rate [orthos tatic sitting Righ t Radial] Pulse Rate [orthos tatic standing Rig ht Radial] Respiratory Rate 16 16 16 Blood Pressure Blood Pressure [Ri ght Arm] 104/59 L 144/69 H 112/61 Blood Pressure [or thostatic lying Ri ght Arm] Blood Pressure [or thostatic sitting Right Arm] Blood Pressure [or thostatic standing Right Arm] Pulse Oximetry 95 95 95 Oxygen Delivery Me thod Room Air Room Air CPAP Room Air CPAP 02/27/23 17:33 02/27/23 18:01 02/27/23 18:30 Temperature 97.7 F Pulse Rate Pulse Rate [Left P ulse Oximeter] 74 88 Pulse Rate [Left R adial] Pulse Rate [orthos tatic lying Right Radial] 77 Pulse Rate [orthos tatic sitting Righ t Radial] 89 Pulse Rate [orthos tatic standing Rig ht Radial] 96 Respiratory Rate 16 16 Blood Pressure Blood Pressure [Ri ght Arm] 110/77 119/84 Blood Pressure [or thostatic lying Ri ght Arm] 110/70 Blood Pressure [or thostatic sitting Right Arm] 120/71 Blood Pressure [or thostatic standing Right Arm] 106/71 Pulse Oximetry 95 95 Oxygen Delivery Me thod Room Air CPAP Room Air CPAP 02/27/23 19:00 02/27/23 23:30 02/27/23 23:30 Temperature 97.9 F 98.6 F Pulse Rate Pulse Rate [Left P ulse Oximeter] 79 79 79 Pulse Rate [Left R adial] Pulse Rate [orthos tatic lying Right Radial] Pulse Rate [orthos tatic sitting Righ t Radial] Pulse Rate [orthos tatic standing Rig ht Radial] Respiratory Rate 16 18 18 Blood Pressure Blood Pressure [Ri ght Arm] 112/53 L 114/64 Blood Pressure [or thostatic lying Ri ght Arm] Blood Pressure [or thostatic sitting Right Arm] Blood Pressure [or thostatic standing Right Arm] Pulse Oximetry 97 97 Oxygen Delivery Me thod Room Air CPAP Room Air CPAP 02/28/23 02:43 02/28/23 08:05 02/28/23 09:28 Temperature 98.6 F 97.7 F Pulse Rate Pulse Rate [Left P ulse Oximeter] 98 92 92 Pulse Rate [Left R adial] 76 Pulse Rate [orthos tatic lying Right Radial] Pulse Rate [orthos tatic sitting Righ t Radial] Pulse Rate [orthos tatic standing Rig ht Radial] Respiratory Rate 18 16 18 Blood Pressure Blood Pressure [Ri ght Arm] 138/72 127/68 Blood Pressure [or thostatic lying Ri ght Arm] Blood Pressure [or thostatic sitting Right Arm] Blood Pressure [or thostatic standing Right Arm] Pulse Oximetry 96 95 Oxygen Delivery Me thod Room Air CPAP Room Air Documenting provider has reviewed patient's vital signs: yes Labs Labs: Laboratory Results - last 24 hr 02/27/23 02/28/23 15:53 06:13 WBC 14.01 H RBC 3.74 L Hgb 12.7 L 11.8 L Hct 35.6 L MCV 95 MCH 32 MCHC 33 Plt Count 175 Sodium 137 Potassium 4.8 BUN 18 Creatinine 0.6 Estimated Creat Clear 59.85 Estimated GFR 99
== END 2023-02-28 11:30 | disposition home or self-care (01) ==
LOC: OR 07:00 → MEDSURG 07:05
PROVIDERS: Family Medicine; PCP Family Medicine; Visit Provider Orthopaedic Surgery
PROC: 0RRJ0JZ Replacement of Right Shoulder Joint with Synthetic Substitute, Open Approach (ICD-10-PCS; CPT 23472; principal; 2023-02-27 09:00)
DX: M75.101 Unspecified rotator cuff tear or rupture of right shoulder, not specified as traumatic (principal); G89.18 Other acute postprocedural pain; I95.81 Postprocedural hypotension; E66.01 Morbid (severe) obesity due to excess calories; G31.84 Mild cognitive impairment of uncertain or unknown etiology; I13.0 Hypertensive heart and chronic kidney disease with heart failure and stage 1 through stage 4 chronic kidney disease, or unspecified chronic kidney disease; E11.22 Type 2 diabetes mellitus with diabetic chronic kidney disease; N18.30 Chronic kidney disease, stage 3 unspecified; I50.9 Heart failure, unspecified; G47.33 Obstructive sleep apnea (adult) (pediatric); I47.29 Other ventricular tachycardia; Z86.73 Personal history of transient ischemic attack (TIA), and cerebral infarction without residual deficits; Z79.01 Long term (current) use of anticoagulants; Z95.810 Presence of automatic (implantable) cardiac defibrillator; Z68.39 Body mass index [BMI] 39.0-39.9, adult
CPT/HCPCS: 23472; 01638; 36415; 64415; 73030; 76942; 82565; 82962; 84132; 84295; 84520; 85018; 85027; 97110; 97116; 97163; 97165; 97535; 99100; A9270; C1713; C1776; J0330; J0690; J1100; J2250; J2371; J2704; J2795; J3010; J7120; L3670

== ENCOUNTER 2023-06-05 13:00 | Outpatient (RCR) | payer MEDICARE, SELFPAY ==
--- NOTE | 2023-03-14 19:39 | PT.OPE ---
PT [facility] Outpatient Eval PT [facility] Outpatient Eval Start: 03/13/23 13:10 Freq: Status: Active Protocol: Document 03/13/23 13:10 BMS (Rec: 03/13/23 13:16 BMS [id number]) E-signed By Kayla Shaw PT Physical Therapy Outpatient Evaluation Insurance Information Recert Due Date 06/11/23 Provider Fax Number ortho internal Medical Diagnosis primary OA L shoulder M19.012 unspecified RC tear or rupture L M75.102 arthropathies L shoulder M12. 812 s/p L RSA 02/27/23 Z96.612 Treating Diagnosis L shoulder pain weakness loss of ROM Referring MD Alejandro Shah MD Subjective Subjective shoulder bothered for years, then got worse when I tried to get up off the floor once had surgery 02/27/23 2 tylenol 2x/ day Pain Comments lifting arm medium to sever pain, cant lift. Date of Surgery (If applicable) 02/27/23 Current Work Status Retired Occupation retired cabinet Preferred Name Patricio Precautions Treatment Precautions/Contraindications [employer] [place] w hearing aids mild to mod cognitive impairment LEWIS w CPAP chronic anticoagulation s/p CVA and w defibrillator implanted , hx ventricular tachycardia hx injurious falls hx surgery R wrist fixation adn tendon transfer w loss of finger ext and mobility/of R UE. R ANDREI s/p fall per PA Patricio is doing very well 1 week post left reverse total shoulder arthroplasty having minimal discomfort. He will begin physical therapy on 03/13/2023. He will wear the sling for 6 weeks post surgery, however he can take the sling off as needed for comfort and exercises. Active range of motion in forward flexion and abduction as tolerates. No external rotation greater than 0? for 6 weeks. He will work on range of motion of the elbow, wrist , fingers several times a day. He can work on massaging soft tissue edema proximally and elevating as needed. He will return to the clinic in 5 weeks Therapy Limitations/Systems Review Cognition,Hearing,Other Medical Problem Objective Range of Motion AROM seated: L shoulder flex 30, abduct 30, ER lacking 20 from neutral. wrist flex 25, ext 20. pronate 90, supinate 30. PROM/AAROM supine L shoulder flex 90, abduct 45, ER to neutral, IR 10 degrees. cervical flex WFL, ext severe loss (chronic), rotation L=35, R=40 w pull into neck and shoulder. L elbow lack 15 degrees flex and ext due to tightness and edema. R shoulder & elbow WFL. R wrist severe loss of mobility due to hx of injury and surgical stabilization/repair in remote past. loss of finger extension and supervisor broadloom on R as well from same injury many years past. Strength L UE not assessed this date, less than 3 due to lack of full AROM. Swelling non-pitting edema through entire L UE and into shoulder/ trunk region. bottom of scar (7 cm distal to ant AC) = 45.5 cm prox to olecranon fossa 37.5 cm supinator 37.0 sm wrist 22 cm Palpation mod tender through RC and pec, myofascial restrictions and tightness into pec, RC, bicep, deltoid UT and forearm Balance & Gait shuffle with shortened steps, balance not assessed this date but tends to be impaired with multitask, turning head or cog tasks. Posture head forward, inc kyphosis and anterior rounding of B sholders Sensation/Reflexes in touch to light sensation L UE Other/Pertinent Objective dark purple to light yellow bruising noted throughout L pec, bicep, lateral trunk and axilla region puffy edema through entire L UE and hand Functional Test Performed & Score quick dash QuickDASH Score Summary 1. Difficulty opening a tight or new jar Severe difficulty opening a tight or new jar (75 points) 2. Difficulty doing heavy elevator pilot Unable to do heavy elevator pilot (100 points) 3. Difficulty carrying a shopping bag or briefcase Unable to carry a shopping bag or briefcase (100 points) 4. Difficulty washing your back Unable to wash back (100 points) 5. Difficulty using a knife to cut food Moderate difficulty using a knife to cut food (50 points) 6. Difficulty with force/ impact through arm, shoulder or hand during recreation Unable to perform recreational activities in which force or impact taken through arm, shoulder or hand (100 points) 7. Extent of interference with normal social activities Arm, shoulder or hand problem has moderately interfered with normal social activities (50 points) 8. Extent of limitation in work or other regular daily activities Arm, shoulder, or hand problem has moderately limited work or other regular daily activities (50 points) 9. Severity of pain in arm, shoulder or hand Moderate arm, shoulder or hand pain (50 points) 10. Severity of tingling in arm, shoulder or hand No tingling (pins and needles) in arm, shoulder or hand (0 points) 11. Difficulty sleeping due to arm, shoulder or hand pain No difficulty sleeping because of pain in arm, shoulder or hand (0 points) Pertinent Negative Pertinent Positive Pertinent Positive QuickDASH Score: 61.4 points. Assessment Assessment/Impression Patient is very pleasant 77 yo male referred to rehab services s/p L reverse total shoulder arthroplasty performed 02/27/23. Patient reports surgery went well though did have an overnight stay, per EMR did have issues with post op hypotension. He presents today with ecchymosis in lateral and anterior chest wall, pec, entire medial arm and into anterior axilla and arm. He has edema as noted above and loss of ROM, strength and functional use. Reports he is using sling at all times at home but does not currently have it on. He has been on maintenance therapy plan for many months due to recurrent injurious falls and difficulty performing home program due to cognitive impairments. Currently hollie Peña is living with patient and assisting with cares. Instructed patient in current restrictions/ precautions and performed active flex, abduct and AAROM PROM all other shoulder motions, reviewed and instructed in home pronation/ supination, elbow mobility and use of ice and elevation for edema. Patient tolerated session well but may be slow recovery with comorbidities and cognitive challenges. Primary Functional Limitations all self cares, meal prep, reach, don/doff clothing, reach/lift/carry, bed mobility , and I toileting Plan of Care Rehabilitation Potential Good Rehabilitation Potential Comments [employer] [place], memory/cognition, lives alone at baseline needs supervision/setup Physical Therapy Goals 1) Pt demo ability to participate in HEP for shoulder and arm mobility, edema management and strength per MD direction. 2) Pt demo ROM L shoulder sufficient to reach in cupboard overhead, wash hair and perform grooming and dressing skills including coat don/doff I or modified I. 3) Pt report ability to prepare/ eat his own simple meals 4) Pt report abiliity to sleep without waking from pain from L shoulder. Coordination/Communication With Referral Source,Patient Caregiver Treatment Plan/Direct Interventions Heat,Ice/Cold/Vasopneumatic, Manual Therapy,Neuromuscular Re-ed,Self-Care/Home Management,Therapeutic Activities,Therapeutic Exercises Frequency/Duration 2x/ week x 4 weeks then 1-2x/ week x 4-8 weeks Patient Will Be Discharged From Therapy Completion of LTG(s),Skills Plateau,Independent w/HEP, Independently Progressing Evaluation Billing Untimed Code Treatment Minutes 20 Complexity Moderate Certification Information Initial Certification Date 03/13/23 Ending Certification Date 06/10/23 Provider Signature Shows Agreement With POC & Medical Necessity Physician Signature & Date Requested Please Sign/Date Here Physician Comment/Change : Physician NPI Number #
== END 2023-10-03 23:59 | disposition home or self-care (01) ==
PROVIDERS: PCP Orthopaedic Surgery; Visit Provider Orthopaedic Surgery
DX: M19.012 Primary osteoarthritis, left shoulder (principal); M75.102 Unspecified rotator cuff tear or rupture of left shoulder, not specified as traumatic; Z51.89 Encounter for other specified aftercare
CPT/HCPCS: 97110; 97140; 97162; 97165; 97530; 97535; X5282